=== PATIENT | female | born 1990 | race Caucasian/White ===

== ENCOUNTER 2019-01-10 07:15 | Inpatient (IN) | payer BC ==
[~2019-01-10] VITALS: Ht 172.7 cm; Wt 89.5 kg
[2019-01-10] MEDS ORDERED: OXYTOCIN 30U/ 0.9% NaCL 500ML 500 ML IV ONE (07:21)
[2019-01-10] MEDS ORDERED: LIDOCAINE 1%, 20ML ONE ×2 (07:22→07:34)
[2019-01-10] MEDS ORDERED: OXYTOCIN 30U/ 0.9% NaCL 500ML 500 ML ONE ×2 (07:22→09:09)
[2019-01-10] MEDS ORDERED: MISOPROSTOL 200 MCG TABLET ONE ×2 (07:22→07:34)
[2019-01-10] MEDS ORDERED: TERBUTALINE 1 MG/ML, 1ML IVPush PRN (07:30)
[2019-01-10] MEDS ORDERED: PENICILLIN GK 5,000,000 UNITS in DEXTROSE 5% 100 ML IVPB ONE (07:30)
[2019-01-10] MEDS ORDERED: FENTANYL PF 100 MCG/2ML IVPush PRN (07:30)
[2019-01-10] MEDS ORDERED: TERBUTALINE 1 MG/ML, 1ML SQ PRN (07:30)
[2019-01-10] MEDS ORDERED: FENTANYL PF 100 MCG/2ML IV PRN (07:30)
[2019-01-10] MEDS ORDERED: NEWBORN KIT ONE (07:32)
[2019-01-10] MEDS ORDERED: OXYTOCIN 10 UNITS/ML, 1ML ONE (07:34)
[2019-01-10] MEDS ORDERED: METHYLERGONOVINE 0.2 MG/ML IM ONE ×2 (08:00→10:00)
[2019-01-10] MEDS: LACTATED RINGERS 1,000 ML IV SCH ×3 (08:35→23:22)
[2019-01-10] MEDS ORDERED: TRANEXAMIC ACID 100 MG/ML, 10ML ONE (08:36)
[2019-01-10] MEDS ORDERED: FENTANYL PF 100 MCG/2ML ONE (08:39)
[2019-01-10 09:20] LABS: BASOPHILS % (AUTO) 0 % (0-1); EOSINOPHILS # (AUTO) 0.02 x10^3/uL (0-0.4); EOSINOPHILS % (AUTO) 0 % (1-7); LYMPHOCYTES # (AUTO) 1.24 x10^3/uL (1-3.4); LYMPHOCYTES % (AUTO) 7 % (22-44); MD NO; MEAN CORPUSCULAR HEMOGLOBIN 30.6 pg (27.0-34.8); MEAN CORPUSCULAR HGB CONC 33.4 g/dL (32.4-35.8); MEAN CORPUSCULAR VOLUME 91.4 fL (80-100); MEAN PLATELET VOLUME 8.5 fL (7.4-10.4); MONOCYTES # (AUTO) 0.63 x10^3/uL (0.2-0.8); MONOCYTES % (AUTO) 4 % (2-9); NEUTROPHILS # (AUTO) 15.01 x10^3/uL (1.8-6.8); NEUTROPHILS % (AUTO) 89 % (42-75); PLATELET COUNT 159 x10^3/uL (130-400); RED BLOOD COUNT 4.64 x10^6/uL (3.82-5.3); RED CELL DISTRIBUTION WIDTH 13.2 % (9.6-15.2)
[2019-01-10] MEDS ORDERED: IBUPROFEN 800 MG TABLET ONE (09:20)
[2019-01-10] MEDS: IBUPROFEN 800 MG TABLET PO PRN (09:23)
[2019-01-10] MEDS ORDERED: BISACODYL 10 MG SUPP PR PRN (09:30)
[2019-01-10] MEDS ORDERED: OXYcodone/APAP 5/325MG TABLET PO PRN (09:30)
[2019-01-10] MEDS ORDERED: MISOPROSTOL 200 MCG TABLET PR PRN (09:30)
[2019-01-10] MEDS ORDERED: ONDANSETRON 2MG/ML, 2ML IV PRN (09:30)
[2019-01-10] MEDS ORDERED: RHOGAM FROM BLOOD BANK 1 NOTE EA IM/IV ONE (09:30)
[2019-01-10] MEDS ORDERED: ACETAMINOPHEN 325 MG TABLET PO PRN (09:30)
[2019-01-10] MEDS ORDERED: HYDROcodone/APAP 5/325 TABLET PO PRN (09:30)
[2019-01-10] MEDS: OXYTOCIN 30U/ 0.9% NaCL 500ML 500 ML IV SCH ×2 (10:15→19:12)
[2019-01-10] MEDS ORDERED: OXYTOCIN 10 UNITS/ML, 1ML IM ONE (10:30)
[2019-01-10 11:45] VITALS: BP 122/83
[2019-01-10 16:30] VITALS: BP 119/81
[2019-01-10 18:00] LABS: BASOPHILS # (AUTO) 0.03 x10^3/uL (0-0.1); BASOPHILS % (AUTO) 0 % (0-1); EOSINOPHILS # (AUTO) 0.13 x10^3/uL (0-0.4); EOSINOPHILS % (AUTO) 1 % (1-7); LYMPHOCYTES # (AUTO) 1.46 x10^3/uL (1-3.4); LYMPHOCYTES % (AUTO) 11 % (22-44); MD NO; MEAN CORPUSCULAR HEMOGLOBIN 31.9 pg (27.0-34.8); MEAN CORPUSCULAR VOLUME 91.4 fL (80-100); MEAN PLATELET VOLUME 8.1 fL (7.4-10.4); MONOCYTES # (AUTO) 0.69 x10^3/uL (0.2-0.8); MONOCYTES % (AUTO) 5 % (2-9); NEUTROPHILS # (AUTO) 11.36 x10^3/uL (1.8-6.8); NEUTROPHILS % (AUTO) 83 % (42-75); PLATELET COUNT 144 x10^3/uL (130-400); RED BLOOD COUNT 3.44 x10^6/uL (3.82-5.3); RED CELL DISTRIBUTION WIDTH 13.4 % (9.6-15.2)
[2019-01-10 20:00] VITALS: BP 113/66
[2019-01-10 23:20] VITALS: BP 120/82
[2019-01-11] MEDS: IBUPROFEN 800 MG TABLET PO PRN ×2 (01:12→09:37)
[2019-01-11 04:13] VITALS: BP 113/78
[2019-01-11] MEDS: OXYTOCIN 30U/ 0.9% NaCL 500ML 500 ML IV SCH ×2 (04:29→15:12)
[2019-01-11] MEDS: LACTATED RINGERS 1,000 ML IV SCH ×2 (05:29→15:21)
[2019-01-11 07:30] VITALS: BP 118/71
[2019-01-11 07:43] LABS: BASOPHILS # (AUTO) 0.01 x10^3/uL (0-0.1); BASOPHILS % (AUTO) 0 % (0-1); EOSINOPHILS # (AUTO) 0.18 x10^3/uL (0-0.4); EOSINOPHILS % (AUTO) 2 % (1-7); LYMPHOCYTES # (AUTO) 1.37 x10^3/uL (1-3.4); LYMPHOCYTES % (AUTO) 12 % (22-44); MD NO; MEAN CORPUSCULAR HEMOGLOBIN 30.2 pg (27.0-34.8); MEAN CORPUSCULAR HGB CONC 33.1 g/dL (32.4-35.8); MEAN CORPUSCULAR VOLUME 91.4 fL (80-100); MEAN PLATELET VOLUME 8.3 fL (7.4-10.4); MONOCYTES # (AUTO) 0.49 x10^3/uL (0.2-0.8); MONOCYTES % (AUTO) 4 % (2-9); NEUTROPHILS % (AUTO) 83 % (42-75); PLATELET COUNT 162 x10^3/uL (130-400); RED BLOOD COUNT 3.48 x10^6/uL (3.82-5.3); RED CELL DISTRIBUTION WIDTH 13.7 % (9.6-15.2)
[2019-01-11] MEDS: PRENATAL VIT/IRON/FA 1 EACH TABLET PO SCH (09:37)
[2019-01-11] MEDS: DOCUSATE 100 MG CAPSULE PO PRN ×2 (09:37→19:48)
[2019-01-11 19:20] VITALS: BP 114/78
[2019-01-12] MEDS: IBUPROFEN 800 MG TABLET PO PRN (04:22)
[2019-01-12 07:05] VITALS: BP 120/65
[2019-01-12] MEDS: PRENATAL VIT/IRON/FA 1 EACH TABLET PO SCH (07:16)
[2019-01-12] MEDS: DOCUSATE 100 MG CAPSULE PO PRN (07:16)
[2019-01-12] MEDS ORDERED: IBUP200T49 PO (09:21)
== END 2019-01-12 10:34 | disposition home or self-care (01) | DRG 806 ==
LOC: LDOP 07:15 → LDIP 07:24 → 2NW 11:14
PROVIDERS: ADMIT Obstetrics & Gynecology; ATTEND Obstetrics & Gynecology
PROC: 10E0XZZ Delivery of Products of Conception, External Approach (ICD-10-PCS; principal; 2019-01-10)
DX: O69.1XX0 Labor and delivery complicated by cord around neck, with compression, not applicable or unspecified (principal); D62 Acute posthemorrhagic anemia; Z37.0 Single live birth; O72.1 Other immediate postpartum hemorrhage; O99.824 Streptococcus B carrier state complicating childbirth; Z3A.40 40 weeks gestation of pregnancy; O90.81 Anemia of the puerperium
CPT/HCPCS: 36415; 85025; 86850; 86900; G0378; J2210; J2590; J7120